=== PATIENT | female | born 1960 | race Caucasian/White ===

== ENCOUNTER 2016-04-23 11:46 | Emergency (ER) | payer MEDICARE, OTHER ==
--- NOTE | ~2016-04-23 | CR63 ---
[facility] A Service of [facility] & [facility] RADIOLOGY TEXT RESULTS PATIENT: MANNY FAIRCHILD LOCATION: SED : 60 UNIT #: [id number] AGE: [address]: Sharda Tucker APRN SEX: F ORDER DR: [id number] [address] [id number] [id number] MR#: [id number] Acc #: [id number] NAME: MANNY FAIRCHILD : 1960 SEX: F STUDY DATE/TIME: 04/23/2016 11:40 UNIT: SED ROOM: STUDY DESCRIPTION: CR Chest 2 View Attending Physician: Sharda Tucker A.P.R.N. Ordering Physician: Sharda Tucker A.P.R.N. Primary Care Physician: Pratima Love M.D. MEDICAL IMAGING REPORT This report is preliminary unless electronic signature is present. EXAM Chest PA and lateral HISTORY History supplied is cough, diarrhea, flu-like symptoms for 5 days FINDINGS PA and lateral views are obtained. The heart size is normal. There are bilateral interstitial infiltrates in the lungs. No focal consolidation is seen. No pleural fluid is identified. CONCLUSION Bilateral diffuse interstitial pulmonary infiltrates. If this patient has any old films these would be helpful to assess chronicity of the process. Certainly acute pneumonitis is in the differential. Dictated by... Javan Sánchez M.D. THIS IS AN ELECTRONICALLY VERIFIED REPORT Javan Sánchez M.D. at 04/24/2016 5:03 PM Nga TD: 04/23/2016 12:35 JOB #: [id number] MEDICAL IMAGING REPORT
[~2016-04-23 11:46] MED LIST: ACTOS30 MG PO; ALPRAZOLAM PO; BAYER ASPIRIN325 M1 PO; COREG PO; COZAAR; FLEXERIL10 MG PO; GLUCOTROL XL PO; HYDROCODON-ACE1 EAC9 PO; INVOKANA300 MG; LASIX PO; LIPITOR; METFORMIN PO; NEURONTIN800 MG PO; PENICILLIN VK PO; PROTONIX PO; VITAMIN D400 UNI2 PO; VOLTAREN75 MG PO; [UNRECOGNIZED DRUG - REMARK]
[2016-04-23 11:53] LABS: INFLUENZA A NEG (NEG); INFLUENZA B NEG (NEG)
== END 2016-04-23 13:41 | disposition home or self-care (01) ==
LOC: SED 11:46
PROVIDERS: Nurse Practitioner
DX: J84.9 Interstitial pulmonary disease, unspecified (principal); I10 Essential (primary) hypertension; F32.9 Major depressive disorder, single episode, unspecified; K21.9 Gastro-esophageal reflux disease without esophagitis; F17.210 Nicotine dependence, cigarettes, uncomplicated; Z88.8 Allergy status to other drugs, medicaments and biological substances; Z88.5 Allergy status to narcotic agent; Z79.899 Other long term (current) drug therapy
CPT/HCPCS: 71020; 82947; 87651; 87804; 87880; 94640; 99283